=== PATIENT | male | born 1980 | race Caucasian/White ===

== ENCOUNTER 2017-03-06 15:30 | Emergency (ER) | payer MEDICAID ==
[~2017-03-06] VITALS: Ht 180.3 cm; Wt 70.3 kg
[~2017-03-06 15:30] MED LIST: MEDROL 4MG. DOSE4 MG PO; NAPROSYN500 M1 PO; ROBAXIN-750750 MG PO; ZITHROMAX Z-PA250 M1 PO
--- NOTE | 2017-03-06 15:55 | RADIOLOGY REPORT PS360 ---
CT HEAD W/O CONTRAST HISTORY: Left-sided weakness facial drooping STROKE PROTOCOL, LEFT SIDE WEAKNESS, DROOPING ORDERING PHYSICIAN: Zak Hannah MD PATIENT AGE: 36 years COMPARISON: None TECHNIQUE: Axial images obtained without contrast. Brain and bone windows reviewed. FINDINGS: Low density changes are present within the right basal ganglia involving the head and body of the caudate, putamen, and the posterior limb of the right internal capsule with some mild edematous changes consistent with an acute/subacute infarction. No acute hemorrhage is evident. No midline shift or hydrocephalus. No other significant anomalies evident. 

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
--- NOTE | 2017-03-06 16:06 | Emergency Room Report ---
History of Present Illness Time Seen by [id number] Presenting Problem in Triage Pt arrived:Walked Presenting Problem:PT C/O OF LEFT SIDED WEAKNESS, LEFT FACIAL DROOP FOR 8 DAYS. Onset of symptoms date/time:/ or onset unknown for:MEDICAL HX UNKNOWN Treatment Prior to Arrival: PT WAS SEEN IN 'S OFFICE AND SENT TO [facility] ER. 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 N Clinical Suspician of Infection? N Mental Status: 1 - Regular (Normal Baseline) Sepsis Risk:Low Sepsis Risk Have you (or family members/close friends) recently traveled outside the [place]? N If Yes, where/when: Have you had exposure to infectious disease within the past month? N TB? Other? Specify: Comment The patient complains of LEFT sided numbness and weakness. He has had the symptoms for 2 weeks. Initially symptoms were intermittent but they have been constant for 8 days. He says it has been causing him to fall couple of times. He denies any loss of vision. No problems with speech. He is been having "constant headaches" for a couple of months. He has no chronic medical problems and is on no prescription medications. He was seen at [facility] emergency department about 8 days ago and says that he was told that he had a problem with a nerve. He says he did not have a CT scan of his head. He went to see Dr. Pena today and Nabor Gillespie. They have sent him to the emergency room for workup. ALLERGIES Coded Allergies: No Known Allergies (03/06/17) History Medical History General CAD? No Angina: No OR: No Hypertension? No Hyperlipidemia? No CHF? No DVT? No PE? No COPD? No Asthma? No Anemia? No GERD? No Gastric ulcers? No GI Bleed? No Hernia? No Thyroid Problems? No Hypothyroidism? No CVA? No Seizures? Yes Diabetes? No Renal Insuffiency? No End Stage Renal Disease? No UTI? No Stones? No BPH? No GB Disease: No Nephritic Syndrome? No Asplenia? No Hepatitis? No Sickle Cell Disease? No Arthritis? No Migraines? No Cataracts? No Glaucoma? No MRSA? No HIV? No TB? No Anxiety? No Depression? No Cancer? No Immunization Hx DT/Tetanus 2010 Surgical Hx Previous Surgery?Y LEFT ARM LEFT ANKLE LEFT JAW Social History Smoking Hx Smoker: Current Every Day Smoker Tobacco: Yes Type Cigarettes Packs/day < 1 Pack Alcohol Alcohol: No Review of Systems All Other Systems Reviewed and Negative Constitutional denies fever Eyes denies blindness Respiratory denies shortness of breath Cardiovascular denies chest pain Gastrointestinal denies vomiting Psychiatric/Neurological headache, numbness, weakness Physical Exam Vital Signs Vital Signs Date Time Temp Pulse Resp B/P Pulse O2 O2 Flow FiO2 Ox Delivery Rate 03/06 1642 98.8 70 18 139/71 98 03/06 1637 98.8 72 18 136/71 97 03/06 1621 77 20 135/92 98 03/06 1532 97.8 78 20 152/85 98 General Appearance normal appearance, WD/WN Eye Exam - bilateral eye normal exam, bilateral eye PERRL, bilateral eye EOMI Ear, Nose, Throat hearing grossly normal, normal ENT inspection Neck normal inspection, non-tender, supple, full range of motion Respiratory Status Yes: trachea midline, chest symmetrical, non tender chest. No: respiratory distress. Lung Sounds bilateral: normal breath sounds, lungs clear. Cardiovascular normal exam, regular rate/rhythm, no peripheral edema, no gallop, no JVD, no murmur, no rub, normal peripheral pulses Peripheral Pulses Pulses normal Yes Gastrointestinal normal bowel sounds, normal exam, non tender, soft, no organomegaly Extremities non-tender, normal range of motion, normal inspection Neurologic alert, diversional therapist II-XII nml as tested, normal exam, oriented x 3 Mental status normal mood/affect Skin intact, normal color, warm/dry Stroke Score/Tx Stroke Evaluation NIH STROKE SCORE NIH STROKE SCORE Response Value 1a.Level of Consciousness ALERT 0 1b.LOC Questions ANSWERS BOTH CORRECTLY 0 1c.LOC Commands OBEYS BOTH CORRECTLY 0 2 .Best Gaze NORMAL 0 3 .Visual NO VISUAL LOSS 0 4 .Facial Palsy MINOR 1 5a.Motor Arm Left DRIFT 1 5b.Motor Arm Right NO DRIFT 0 6a.Motor Leg Left DRIFT 1 6b.Motor Leg Right NO DRIFT 0 7 .Limb Ataxia ABSENT 0 8 .Sensory PARTIAL LOSS 1 9 .Best Language NO APHASIA 0 10.Dysarthria NORMAL ARTICULATION 0 ED.NIH11 PARTIAL NEGLECT 1 Total 5 Medical Decision Making LABS/Meds/Orders Pt receiving controlled substance in ED? No Results/Orders Laboratory Tests 03/06/17 1600: Sodium 132 L, Potassium 4.0, Chloride 98, Carbon Dioxide 26, BUN 10, Creatinine 0.7 L, Estimated Creat Clear 146, Estimated GFR (MDRD) 128, Glucose 99, Calcium 9.4, Total Bilirubin 0.4, AST 20, ALT 26, Alkaline Phosphatase 87, Creatine Kinase 57, CK-MB (CK-2) Rel Index 0.9, CK and CKMB Interp < 0.5, Troponin I < 0.02, Total Protein 7.9, Albumin 4.4, Globulin 3.5 H, Albumin/Globulin Ratio 1.3, WBC 10.7, RBC 5.81, Hgb 17.5, Hct 50.3, MCV 86.5, RDW 12.7, Plt Count 241, MPV 7.4, Gran % 66.8, Gran # 7.2, Lymphocytes % 24.0, Monocytes % 6.2, Eosinophils % 2.1, Basophils % 0.8, Lymphocytes # 2.6, Monocytes # 0.7, Eosinophils # 0.2, Basophils # 0.1, PUBS MCHC 34.7, MCH 30.0 Current Medication Orders Sig/Val Start time Last Medication Dose Route Stop Time Status Admin Aspirin 324 MG ONCE ONE 03/06 1615 DC 03/06 PO 03/06 1616 1613 Sodium Chloride 10 ML PRN PRN 03/06 1615 DCD IV 03/07 1609 Aspirin 0 .STK-MED ONE 03/06 1611 DC .ROUTE Orders Procedure Date/time Status DIET-NOTHING BY MOUTH 03/06 D Active DRUG ABUSE SCREEN (TRIAGE) 03/06 1611 Active 12 LEAD EKG-YENI (INITIAL) 03/06 1609 Active ELECTROCARDIOGRAM REQUEST 03/06 1609 Active IV SALINE LOCK 03/06 1609 Active CBC WITH AUTO DIFF 03/06 1609 Complete CARDIAC ENZYMES 03/06 1609 Complete CHEM 12 PROFILE 03/[address] HEAD REQ 03/06 1533 Active CM/EKG CM/EKG Comments EKG interpreted by Zak Hannah MD: Rhythm: sinus Rate: 63 [place]: normal Ectopy: none Conduction: normal ST Segment Changes: none T Wave Changes: none Q Waves: none No evidence of acute ischemia or injury XRAY/CT/US XRAY/CT/US CT head Comment CT scan interpreted by radiologist: Acute infarction RIGHT basal ganglia. Involves putamen, head of the caudate, and globus pallidus. Progress - 4:05 PM: Case discussed with Dr. Dangelo, [facility] stroke team. He accepts the patient to be transferred to [facility] emergency department. He requested aspirin be given. Departure Departure Disposition DC/XFER from ER to [facility]. Hosp Clinical Impression Primary Impression: CVA (cerebral vascular accident) Qualifiers: CVA mechanism: thrombosis Precerebral and cerebral artery: unspecified cerebral artery Qualified Code: I63.30 - Cerebral infarction due to thrombosis of unspecified cerebral artery Condition STABLE Referrals Becky SNYDER,Jonnathan Xavier (Family) ED Critical Care Critical Care No at [id number]
--- OUTSIDE RECORDS SUMMARY | 2017-03-06 16:06 | External Medical Summary Rpt | CCD ---
Author Author , ANGIE Organization ANGIE Address Unknown Phone [email or web address] Oper[employer] Immunization Name Date Rout CVX Reac Dose Comm Prov Is Faci e tion ent ider Refu lity Give sed n Td 05-0 9 999 Hist H149 No H149 (georgi 4-19 oric lt), 98 al Info adso rmat rbed ion - Sour ce Unsp ecif ied MMR 05-0 3 999 Hist H149 No H149 4-19 oric 98 al Info rmat ion - Sour ce Unsp ecif ied
--- OUTSIDE RECORDS SUMMARY | 2017-03-06 16:06 | External Medical Summary Rpt | CCD ---
Author Author , ANGIE Organization [employer]GIE Address Unknown Phone [email or web address] Immunization Name Date Rout CVX Reac Dose [...]
--- OUTSIDE RECORDS SUMMARY | 2017-03-06 16:06 | External Medical Summary Rpt ---
Author Author ANGIE Vega, [employer] Organization [employer] Address Unknown Phone Unavailable
[2017-03-06 16:21] LABS: LYMPH # 2.6 K/mm3 (0.7-4.5)
[2017-03-06 16:22] LABS: HEMOGLOBIN 17.5 g/dL (14.1-18.0)
[2017-03-06 16:41] LABS: BUN 10 mg/dL (7-18); GFR (ESTIMATED) 128 ML/MIN (>60)
[2017-03-06 16:42] VITALS: BP 139/71
--- NOTE | 2017-03-06 16:48 | RADIOLOGY REPORT PS360 ---
CHEST-PORTABLE HISTORY: Left-sided weakness and facial drooping stroke sx ORDERING PHYSICIAN: Zak Hannah MD PATIENT AGE: 36 years COMPARISON: 02/01/2014 FINDINGS: The cardiomediastinal silhouette and pulmonary vascularity are within normal limits. The lungs are clear without infiltrates, suspicious nodules, or pleural effusions. No acute bony abnormalities. IMPRESSION: Negative chest, no acute finding
== END 2017-03-06 16:53 | disposition short-term general hospital (02) ==
LOC: ER 15:30
PROVIDERS: Emergency Medicine
DX: I63.30 Cerebral infarction due to thrombosis of unspecified cerebral artery (principal); R29.705 NIHSS score 5; F17.210 Nicotine dependence, cigarettes, uncomplicated